=== PATIENT | female | born 1940 | race Caucasian/White ===

== ENCOUNTER 2017-11-08 12:40 | Inpatient (IN) | payer OTHER ==
[2017-11-08 13:28] LABS: PLATELET COUNT 403 10^3/uL (150-400)
--- NOTE | 2017-11-08 13:54 | EDPHY ---
H & P Stated Complaint: DELIRIUM 2 WEEKS AGO/DIZZYNESS WITH FREQ FALLS Time Seen by Provider: 11/08/17 13:23 HPI/ROS: CHIEF COMPLAINT: Dizziness, hand tingling HISTORY OF PRESENT ILLNESS: 76-year-old female with rheumatoid arthritis presents with intermittent dizziness and hand tingling. This morning, she was about to go shopping with her daughter, felt dizzy and then developed tingling in her hands and her feet. She was very weak and could not get out of the car. She did not fall and did not faint. Over the past 6 weeks, she has had intermittent episodes of dizziness, often when she is standing. She has had a few falls, but no injuries. 10 days ago, she had an episode of "delirium", described by the daughter as lying in a position, rocking and mumbling. Ativan 0.5 mg orally given and the symptoms resolved. REVIEW OF SYSTEMS: complete 10 point ROS reviewed and is negative except for the noted elements in the HPI - Personal History Current Tetanus Diphtheria and Acellular Pertussis (TDAP): Unsure - Medical/Surgical History Hx Asthma: No Hx Chronic Respiratory Disease: No Hx Diabetes: No Hx Cardiac Disease: No Hx Renal Disease: No Hx Cirrhosis: No Hx Alcoholism: No Hx HIV/AIDS: No Hx Splenectomy or Spleen Trauma: Yes Other PMH: RA EPISODES OF DELIRIUM OVER THE YEARS - Social History Smoking Status: Never smoked Drug Use: None Additional Social History: Lives with daughter in own home - Physical Exam Exam: General Appearance: Alert, anxious, eyes closed Eyes: Pupils equal and round, no conjunctival pallor or injection ENT, Mouth: Mucous membranes moist Neck: Normal inspection Respiratory: Lungs are clear to auscultation Cardiovascular: Regular rate and rhythm Gastrointestinal: Abdomen is soft and nontender Neurological: Alert, oriented x3, cranial nerves II through XII intact, motor 5 /5, sensory intact to light touch Skin: Warm and dry Extremities: Normal inspection Psychiatric: Anxious Constitutional: Initial Vital Signs Temperature (C) 36.7 C 11/08/17 12:45 Heart Rate 76 11/08/17 12:45 Respiratory Rate 18 11/08/17 12:45 Blood Pressure 115/78 11/08/17 12:45 O2 Sat (%) 97 11/08/17 12:45 O2 Delivery Mode Room Air Allergies/Adverse Reactions: ceftriaxone Allergy (Mild, Verified 11/08/17 12:43) Rash hydrocodone [Hydrocodone] Allergy (Unknown, Verified 11/08/17 12:43) gluten Allergy (Verified 11/08/17 19:36) latex Allergy (Verified 11/08/17 12:43) Sulfa (Sulfonamide Antibiotics) Allergy (Verified 11/08/17 12:43) Unknown medical chemical sensitivity Allergy (Intermediate, Uncoded 10/20/13 09:25) Other-Enter Comments Home Medications: Medication Instructions Recorded Gabapentin [Neurontin 100 MG (*)] 100 mg PO DAILY 11/08/17 Herbals/Supplements -Info Only 1 ea PO DAILY 11/08/17 traMADol [Ultram 50 mg (*)] 100 mg PO 0600,1200,1800,2100 11/08/17 Medical Decision Making - Diagnostics EKG Interpretation: EKG interpreted by me reveals normal sinus rhythm, rate 73, abnormal R-wave progression. Interpretation: Borderline EKG ED Course/Re-evaluation: This patient presents with dizziness and bilateral hand tingling. On my initial evaluation, she is clearly anxious and hyperventilating. Gradually during my evaluation, she calmed down and her fingers stopped tingling. She opened her eyes and was conversing normally after calming down. I observed a video of this pt (taken by the daughter) during the episode of delirium 10 days ago. Episode is most c/w anxiety. Daughter requests an MRI of the brain. Previously she had an MRI for one of these episodes and results were normal. Patient ambulated to the bathroom, initially felt fine, but then became dizzy and almost fell. Orthostatics are normal. After this episode of dizziness, she became quite anxious. Ativan 0.5 mg IV given. Hospitalist service was consulted for admission because of dizziness and inability to walk safely. Unclear etiology of dizziness. Laboratory results discussed with patient and her daughter. Urinalysis consistent with urinary tract infection. Urine culture sent and Cipro 500 mg orally ordered. Differential Diagnosis: Altered mental status including but not limited to hypoglycemia, infectious process, electrolyte abnormality, head injury, CVA, and intoxicants. - Data Points Laboratory Results: Laboratory Results 11/08/17 13:05 11/08/17 13:05 11/08/17 11/08/17 11/08/17 14:10 13:05 13:05 WBC 9.11 10^3/uL 10^3/uL (3.80-9.50) RBC 4.85 10^6/uL 10^6/uL (4.18-5.33) Hgb 14.9 g/dL g/dL (12.6-16.3) Hct 42.8 % % (38.0-47.0) MCV 88.2 fL fL (81.5-99.8) MCH 30.7 pg pg (27.9-34.1) MCHC 34.8 g/dL g/dL (32.4-36.7) RDW 14.1 % % (11.5-15.2) Plt Count 403 10^3/uL H 10^3/uL (150-400) MPV 9.4 fL fL (8.7-11.7) Neut % (Auto) 55.4 % % (39.3-74.2) Lymph % (Auto) 34.1 % % (15.0-45.0) [place] % (Auto) 8.9 % % (4.5-13.0) Eos % (Auto) 1.1 % % (0.6-7.6) Baso % (Auto) 0.3 % % (0.3-1.7) Nucleat RBC Rel Count 0.0 % % (0.0-0.2) Absolute Neuts (auto) 5.04 10^3/uL 10^3/uL (1.70-6.50) Absolute Lymphs (auto) 3.11 10^3/uL H 10^3/uL (1.00-3.00) Absolute Monos (auto) 0.81 10^3/uL H 10^3/uL (0.30-0.80) Absolute Eos (auto) 0.10 10^3/uL 10^3/uL (0.03-0.40) Absolute Basos (auto) 0.03 10^3/uL 10^3/uL (0.02-0.10) Absolute Nucleated RBC 0.00 10^3/uL 10^3/uL (0-0.01) Immature Gran % 0.2 % % (0.0-1.1) Immature Gran # 0.02 10^3/uL 10^3/uL (0.00-0.10) Sodium 140 mEq/L mEq/L (135-145) Potassium 3.6 mEq/L mEq/L (3.3-5.0) Chloride 110 mEq/L mEq/L (97-110) Carbon Dioxide 21 mEq/l L mEq/l (22-31) Anion Gap 9 mEq/L mEq/L (8-16) BUN 15 mg/dL mg/dL (7-23) Creatinine 0.7 mg/dL mg/dL (0.6-1.0) Estimated GFR > 60 Glucose 81 mg/dL mg/dL (70-100) Calcium 9.6 mg/dL mg/dL (8.5-10.4) Urine Color JAZMÍN Urine Appearance MODERATELY TURBID Urine pH 5.0 (5.0-7.5) Ur Specific [employer] 1.027 (1.002-1.030) Urine Protein NEGATIVE (NEGATIVE) Urine Ketones 1+ H (NEGATIVE) Urine Blood NEGATIVE (NEGATIVE) Urine Nitrate NEGATIVE (NEGATIVE) Urine Bilirubin NEGATIVE (NEGATIVE) Urine Urobilinogen 2.0 EU H EU (0.2-1.0) Ur Leukocyte Esterase 2+ H (NEGATIVE) Urine RBC TNP Urine WBC TNP Ur Epithelial Cells TNP Ur Renal Epithelial Cell TNP Urine Bacteria TNP Urine Mucus TNP Urine Yeast TNP Urine Glucose NEGATIVE (NEGATIVE) Medications Given: Acetaminophen (Tylenol) 1,000 mg PO Q8H [facility] Stop: 05/07/18 15:44 Last Admin: 11/08/17 18:28 Dose: Not Given Lorazepam (Ativan Injection) 0.5 mg IVP Q8H PRN PRN Reason: Anxiety, Unable to Take PO Stop: 05/07/18 15:48 Last Admin: 11/08/17 21:21 Dose: 0.5 mg Ondansetron HCl (Zofran) 4 mg IVP Q4HRS PRN PRN Reason: Nausea/Vomiting, Can't Take PO Stop: 05/07/18 15:34 Last Admin: 11/08/17 21:20 Dose: 4 mg Discontinued Medications Ciprofloxacin (Cipro) 500 mg PO EDNOW ONE PRN Reason: Protocol Stop: 11/08/17 15:46 Last Admin: 11/08/17 16:44 Dose: 500 mg Ceftriaxone Sodium/Dextrose (Rocephin 1 Gm (Premix)) 50 mls @ 100 mls/hr IV DAILY MIHAI PRN Reason: Protocol Stop: 12/08/17 15:59 Last Admin: 11/08/17 17:54 Dose: Not Given Lorazepam (Ativan Injection) 0.5 mg IVP EDNOW ONE Stop: 11/08/17 14:53 Last Admin: 11/08/17 15:15 Dose: 0.5 mg Lorazepam (Ativan Injection) 0.5 mg IVP EDNOW ONE Stop: 11/08/17 16:20 Last Admin: 11/08/17 16:34 Dose: 0.5 mg Point of Care Test Results: Urine Dip Collection Date 11/08/17 Collection Time 14:26 Specific [employer] (1.002-1.030) 1.030 PH (5.0-7.5) 6.0 Leukocytes (Negative) 2+ Nitrites (Negative) Negative Protein (Negative) 2+ Glucose (Negative) Negative Ketones (Negative) 3+ Urobilnogen (0.2-1.0 EU) 0.2 Bilirubin (Negative) Negative Blood (Negative) Negative Departure - Departure Disposition: [facility] Acute Clinical Impression: Dizziness Condition: Fair
--- NOTE | 2017-11-08 14:12 | CPEKG ---
Test Reason : OPEN Blood Pressure : / mmHG Vent. Rate : 073 BPM Atrial Rate : 073 BPM P-R Int : 200 ms QRS Dur : 096 ms QT Int : 431 ms P-R-T Axes : 038 -20 062 degrees QTc Int : 475 ms Sinus rhythm Borderline left axis deviation Abnormal R-wave progression, early transition Confirmed by Loreta Crowder ([id number]) on 11/08/2017 2:12:18 PM Referred By: Confirmed By:Loreta Crowder
[2017-11-08] MEDS ORDERED: LORazepam 2 MG/ML INJ IVP ONE ×2 (14:52→16:19)
[2017-11-08] MEDS ORDERED: ONDANSETRON 4 MG/2 ML VIAL IVP PRN (15:35)
[2017-11-08] MEDS ORDERED: traMADol 50 MG TAB PO PRN (15:35)
[2017-11-08] MEDS ORDERED: ONDANSETRON DISINTEGRATING 4 MG TAB PO PRN (15:35)
[2017-11-08] MEDS ORDERED: CIPROFLOXACIN 500 MG TAB PO ONE (15:45)
[2017-11-08] MEDS ORDERED: LORazepam 2 MG/ML INJ IVP PRN ×2 (15:49→19:06)
[2017-11-08] MEDS ORDERED: GADOBUTROL 10 ML VIAL IVP ONE (16:01)
--- NOTE | 2017-11-08 16:33 | GHP ---
DATE OF ADMISSION: 11/08/2017 CHIEF COMPLAINT: Dizziness and inability to ambulate with history of frequent falls. HISTORY OF PRESENT ILLNESS: The patient is a 76-year-old female with history of rheumatoid arthritis who presents to the emergency department with her daughter after an episode of sudden dizziness, which is described as lightheadedness and inability to ambulate. Her daughter states she was in her usual state of health when they came down from [place] to go shopping. She was doing well, but when she got out of the car, she had sudden onset dizziness with bilateral hand tingling. She was so weak and unable to ambulate, she was brought to the emergency department. In the ED, she was hyperventilating and it was thought she was having a panic attack. She was given IV Ativan and she has calmed a bit. She is actually unable to provide history, and the history is obtained from her daughter. She states over the past several weeks, the patient has had intermittent fluctuations of delirium. She shows me several videos of the patient curled in position, moaning and rocking with nonsensical speech. She has apparently suddenly snapped out of these episodes in the past. The daughter goes on to state that she may be having some memory deficits. She wonders if her presentation may be related to pain from her rheumatoid arthritis. She is not currently followed by a communication arts lecturer. She denies any recent fevers, chills, or urinary symptoms, such as dysuria, frequency, or urgency. There have been no reports of abdominal pain, chest pain, or shortness of breath. In the emergency department, her vital signs were stable. She was not orthostatic. She received 0.5 mg of IV Ativan and is currently resting comfortably, but again is unable to provide history or answer questions. PAST MEDICAL HISTORY: Rheumatoid arthritis. She is not currently on any disease modifying agents or immunosuppressants. MEDICATIONS: Please see [facility] for completed outpatient medication list. ALLERGIES: Ceftriaxone, hydrocodone, latex, sulfa, and medical chemical sensitivity. FAMILY HISTORY: Reviewed and noncontributory. SOCIAL HISTORY: The patient lives in [place]. Her daughter has been living with her for the last year. It is noted her daughter is quite anxious about her mother's condition. The patient is a lifetime nonsmoker and denies alcohol or drug use. REVIEW OF SYSTEMS: 10-point review of systems is performed and is negative, except as per HPI. OBJECTIVE: VITAL SIGNS: Temperature is 36.7, blood pressure is 115/78, heart rate 77, respiratory rate 18 to 22, she is 96% on room air. GENERAL: Patient is awake, intermittently alert, oriented to person only. Appears very anxious. HEENT: Head is atraumatic, normocephalic. Pupils equal, round, react to light. Extraocular motions are intact. Oropharynx is clear. Mucous membranes are moist. NECK: Supple. No JVD. HEART: Regular rate without murmur. LUNGS : Clear to auscultation bilaterally. ABDOMEN: Soft, nondistended. Normoactive bowel sounds. EXTREMITIES: Without cyanosis, clubbing, or edema. NEUROLOGIC: She moves all 4 extremities. Strength is 5/5 in bilateral upper and lower extremities. There is no facial droop. She is really not following commands. LABORATORY DATA: CBC reveals a normal white count, platelet count of 403. Basic metabolic panel is normal with a slightly low serum bicarb of 21, creatinine is normal at 0.7. Urinalysis shows 2+ leukocytes, 50-182 white blood cells with 15-25 red cells. ASSESSMENT/PLAN: The patient is a 76-year-old female with history of rheumatoid arthritis who presents to the emergency department with dizziness, weakness, recent cognitive fluctuations, and falls. 1. Acute encephalopathy. Differential diagnosis, includes infectious etiology , such as urinary tract infection given her marked pyuria and recent mental status changes. Also consider onset of dementia. With recent cognitive fluctuation as described by her daughter and evidenced by video, I would even consider Lewy body dementia. For that reason, we will avoid antipsychotics and provide low doses of p.r.n. Ativan if needed for agitation as a last resort. With marked pyuria, will treat with intravenous ceftriaxone (allergy, changed to Cipro), obtain blood cultures and await culture data. In addition, stroke or transient ischemic attack is on the differential and MRI, MRA is ordered (pt unable to tolerate, this was not pressed as my suspicion for acute CVA is low). I have also requested Neurology consult for the morning. Her daughter is convinced she has a progressive neurological condition. 2. Rheumatoid arthritis. She is not currently followed by Rheumatology and is not on any immunosuppressant therapy at this time. We will continue her home tramadol for pain control with p.r.n. low-dose intravenous morphine as needed and we will also add scheduled Tylenol. Recommend outpatient Rheumatology followup. 3. Suspected urinary tract infection. As above, we will treat with Cipro and await further culture data. DISPOSITION: Patient is admitted to observation status. She may be a candidate for discharge tomorrow if her condition remains stable pending neurologic recommendation and MRI results. PT/OT evaluations requested. CODE STATUS: Patient is full code. /[id number]/MODL MTDD
[2017-11-08] MEDS: ACETAMINOPHEN 500 MG TAB PO SCH ×2 (18:28→23:30)
[2017-11-09] MEDS: CIPROFLOXACIN 500 MG TAB PO SCH ×2 (04:02→16:47)
[2017-11-09] MEDS: ACETAMINOPHEN 500 MG TAB PO SCH ×2 (04:20→08:35)
[2017-11-09] MEDS ORDERED: KETOROLAC 15 MG/1 ML SDV IVP ONE (04:57)
[2017-11-09] MEDS: GABAPENTIN 100 MG CAP PO SCH (11:05)
[2017-11-09] MEDS: NS 1,000 ML IV SCH (11:26)
--- NOTE | 2017-11-09 11:39 | HOSPPROG ---
Hospitalist Progress Note Assessment/Plan: The patient is a 76-year-old female with history of rheumatoid arthritis who presents to the emergency department with dizziness, weakness, recent cognitive fluctuations, and falls. Dr Ledezma and I evaluated the patient together and reviewed plan of care with her daughter who is at the bedside. *acute encephalopathy -etiology unclear -she is alert and oriented but has some difficulty in recalling what city she is in -will get MRI, CT of head and neck today with sedation (was unable to lie still yesterday for this) -could be some type of dementia vs TIA, has no significant focal deficits -daughter shared a video in which the patient is lying on her side in a position and moaning c/o discomfort, it was hard to hear exactly what she is saying *suspected UTI -cipro *RA -no longer on medication for this -prn tramadol *Plan: imaging today, Dr Ledezma to see again tomorrow. She will require another midnight stay for further evaluation and imaging to help decide plan of care. Subjective: Valorie has no specific complaints. Objective: Vital Signs Temp Pulse Resp BP Pulse Ox 36.7 C 72 16 122/66 H 96 11/09/17 11:19 11/09/17 11:19 11/09/17 11:19 11/09/17 11:19 11/09/17 11:19 11/08/17 11/09/17 11/10/17 05:59 05:59 05:59 Output Total 250 Balance -250 - Physical Exam Constitutional: no apparent distress, appears nourished, not in pain Eyes: PERRL Ears, Nose, Mouth, Throat: hearing normal Cardiovascular: regular rate and rhythym Respiratory: no respiratory distress Skin: warm Musculoskeletal: full muscle strength Neurologic: AAOx3, No pronator drift, No CN II-XII Intact, No facial droop Psychiatric: interacting appropriately, not anxious ICD10 Worksheet Patient Problems: Problems Problem Status Onset Dizziness Acute Altered mental status Active Acquired asplenia Acute Infliximab (Remicade) long-term use Acute Pseudogout of left elbow Acute Septic arthritis of elbow, left Acute
[2017-11-09] MEDS: traMADol 50 MG TAB PO PRN (12:16)
--- NOTE | 2017-11-09 12:47 | GCON ---
REFERRING PHYSICIAN: Eli Flores MD HISTORY: The patient is a 76-year-old woman whom I am asked to see in neurologic consultation regard ing altered mental state. Her daughter is able to provide a nice history regarding what she has witn essed with her mother over the last few years. She says that she has had several episodes (probably 3 or 4) where she has witnessed her mother in a profound state of delirium. Specifically, she did sh ow a video where her mother is lying in the position and moaning and seems to be talking about pain and discomfort but looks very uncomfortable and often is not able to communicate very effectivel y during these events. It is not a loss of consciousness and she appears to be awake during the even ts, but simply looks to be uncomfortable. Her daughter says this can go on for hours and even days s ometimes before slowly resolving within typically 24-48 hours. There have been no witnessed seizures . She does not typically have focal deficits when this occurs. Fairly recently she was experiencing dizziness. This was a lightheadedness and trouble with balance. She had been with her daughter and was at her baseline when she went shopping and then suddenly seemed dizzy and was complaining of peter d tingling and was so weak that she had trouble walking and came to the emergency department yesterda y. She was hyperventilating and thought to be potentially having a panic attack and got IV lorazepam , which partially helped. These fluctuating symptoms continue to be challenging, and that is partly why she has come in the hospital, for better understanding of what is happening, the fact that she wa s not back to her baseline. There have also been some questions about cognitive impairment and wheth er her mother might be having dementia. She has a long history of deforming rheumatoid arthritis and for some number of years was on Remicade but has not taken that for least 5 years because they were not sure it was helpful and wanted to do some alternative medicine/Tamaz[employer] medicine type approaches. However, this has also not led to signif icant overall improvement. She is not currently under the care of a training personnel supervisor. She has not wan jovon to follow that traditional approach. When I am speaking with the patient this morning, she has limited insight about her problems. She is not specifically complaining of unique problems for which she wants to ask me questions, but is ther e with her daughter and clearly does not feel particularly comfortable. She is no longer having the acute agitation and in the middle of one of her episodes, but is not fully back to her normal baselin e yet. She is not complaining of headache but she does have her normal rheumatologic pains, mainly i n the upper extremities, hands, shoulders. The attempt to obtain MRI was limited, and she moved too much to get a good study, so we are going to try that with sedation; but there was not an obvious evidence of stroke or mass lesions. Nonspecifi c white matter changes were seen, and this has been seen in the past as well in 2013. PAST MEDICAL HISTORY: Noncontributory. ALLERGIES: Ceftriaxone, hydrocodone, gluten, latex, sulfa and some medical chemical sensitivities. Her daughter says her mother is fairly sensitive to low doses of medicines as well. FAMILY HISTORY: Noncontributory. SOCIAL HISTORY: She lives in [place], and her daughter has been living with her recently. The pat wan does not have history of smoking, drug or alcohol use. REVIEW OF SYSTEMS: A 10-point review of systems completed and unremarkable except for that noted abo ve. CURRENT MEDICATION: Cipro 500 mg twice daily; gabapentin 100 mg daily; lorazepam as needed; morphine as needed; Zofran as needed; tramadol as needed for pain. At home she had gabapentin 100 mg daily; tramadol 100 mg 4 times a day; and numerable supplements. PHYSICAL EXAMINATION: VITALS: The blood pressure is 122/66. Pulse of 72. Respirations 16. Temper ature 36.7. GENERAL: A well-developed woman, lying in the bed in no acute distress. EYES: Clear. NECK: Supple. No bruits or masses. CARDIAC: Regular rate and rhythm. No murmur. SKIN: No skin rashes. NEURO: She is alert but has unsustained attention and is able to tell me that she is in [facility], but could not remember the city. She knows her address but could not come up with the ci ty initially. She knows she is in [place]. She can generally follow simple commands but is easily distracted and tends to answer questions but not initiate conversation for the most, part and often s imply closes her eyes and appears to want to rest. She does not seem to have aphasic speech. The pu pils are 2 mm and reactive. Extraocular movements are intact. Normal facial sensation and movement. Palate elevates symmetrically. Tongue protrudes midline. The motor examination, it is hard to det ect a definite weakness outside of just deconditioning, so she is in the 4/5 range approximately, and more preserved strength distally although the deforming rheumatoid arthritis creates some limitation . She recognizes sensation well to temperature and light touch. I did not have her try to walk with me. Reflexes 1+. LABORATORY STUDIES: Normal white count. Chemistry is unremarkable. Urinalysis shows evidence of a urinary tract infection with 50-182 white cells. The brain MRI again was only limited but did not show anything beyond white matter changes and atroph y. No obvious mass effect. IMPRESSION: Total unit time of 50 minutes. The patient's case was reviewed directly with Bethany spivey as well as the patient's daughter and her nurse. We are not finding an obvious acute neurologi c diagnosis beyond episodic delirium or encephalopathy, and it is reasonable to consider that there m ay be underlying mild cognitive impairment or dementia but I am less sure of that at this stage of th e evaluation. I do not think these events represent TIA or seizure. Central nervous system infectio n is thought to be unlikely and I also doubt vasculitis or complications associated with a primary rh eumatologic disorder, but I feel that better imaging of the brain with MRI as well as MR angiogram wo uld be important for ruling out secondary causes of this phenomenon. A functional disorder or a conv ersion disorder associated with other factors of her chronic illness is also not clearly evident at t his point, but part of the differential consideration. Having the urinary tract infection can certai nly create delirium in the setting of underlying limited cognitive reserve. Speech Therapy has initi ated evaluation. We will all be getting to know her better over the next few days and try to provide further insights for the patient and her daughter, who is very conscientious and interested in doing what she can to help her mother. /[id number]/MODL
--- NOTE | 2017-11-09 15:04 | ASMTCMCOM ---
CM Note CM Note Notes: Pt is a 76 y/o female admitted for dizziness and inability to ambulate. Pt has a hx of frequent falls, rheumatoid arthritis. Therapies have been ordered and awaiting recommendations. Pt has been having intermittent fluctuations of delirium. Therapies and neurology have been consulted. Needs are TBD at this time. CM to follow. Plan: TBD Date Signed: 11/09/2017 03:03 PM Electronically Signed By:BLESSING Sherman
[2017-11-09] MEDS ORDERED: GADOBUTROL 10 ML VIAL IVP ONE (15:19)
[2017-11-10] MEDS: NS 1,000 ML IV SCH (00:23)
[2017-11-10] MEDS: CIPROFLOXACIN 500 MG TAB PO SCH (04:55)
--- NOTE | 2017-11-10 07:28 | PDMN ---
Medical Necessity Medical necessity: Change to IP, as of 11/09/17, per PHYSICIAN ADVISOR; los >2 mn for ongoing management of acute encephalopathy (etiology unclear-r/o dementia vs TIA), dizziness, weakness, falls & suspected UTI; requiring further workup/monitoring , IVFs & therapies; hx RA
[2017-11-10 08:14] VITALS: BP 121/69
[2017-11-10] MEDS: GABAPENTIN 100 MG CAP PO SCH (08:58)
[2017-11-10] MEDS: traMADol 50 MG TAB PO PRN (09:02)
--- NOTE | 2017-11-10 11:24 | HOSPPROG ---
Hospitalist Progress Note Assessment/Plan: The patient is a 76-year-old female with history of rheumatoid arthritis who presents to the emergency department with dizziness, weakness, recent cognitive fluctuations, and falls. Dr Ledezma and I evaluated the patient together and reviewed plan of care with her daughter who is at the bedside. *acute encephalopathy -resolved -Imaging doesn't show any clear cut etiology -further f/u with Dr Ledezma *suspected UTI/possible cystitis -micro shows Aerococcus urinae- she says she is allergic to PCN and to cephalosporins -w improvement, will give her another day of cipro even though this is usually not treated with this *RA -no longer on medication for this -prn tramadol *Plan: dc Subjective: Tree is feeling well, eating lunch and wants to go home. Objective: Vital Signs Temp Pulse Resp BP Pulse Ox 36.8 C 70 16 121/69 H 98 11/10/17 08:00 11/10/17 08:00 11/10/17 08:00 11/10/17 08:00 11/10/17 08:00 11/09/17 11/10/17 11/11/17 05:59 05:59 05:59 Intake Total 1200 Balance 1200 - Physical Exam Constitutional: no apparent distress Eyes: PERRL Ears, Nose, Mouth, Throat: hearing normal Respiratory: no respiratory distress Gastrointestinal: normoactive bowel sounds Skin: warm Musculoskeletal: full muscle strength Neurologic: sensation intact bilaterally Psychiatric: interacting appropriately ICD10 Worksheet Patient Problems: Problems Problem Status Onset Dizziness Acute Altered mental status Active Acquired asplenia Acute Infliximab (Remicade) long-term use Acute Pseudogout of left elbow Acute Septic arthritis of elbow, left Acute
--- NOTE | 2017-11-10 11:56 | ASMTLACE ---
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
--- NOTE | 2017-11-10 11:58 | ASMTCMCOM ---
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 CM sent referral to [facility] who can accept pt. Pt to return home with dtr Lore who lives with her. DC Plan: Homecare/ [facility] Date Signed: 11/10/2017 11:58 AM Electronically Signed By:Tameka Cantor RN
--- NOTE | 2017-11-10 12:01 | ASMTDCNOTE ---
Case Management Discharge Discharge Order Complete? 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 Sydni at [facility] notified. Date Signed: 11/10/2017 12:00 PM Electronically Signed By:Tameka Cantor RN
--- NOTE | 2017-11-10 13:38 | GDS ---
DISCHARGE DIAGNOSES: 1. Acute encephalopathy. 2. Suspected urinary tract infection, possible cystitis. 3. Rheumatoid arthritis. CONSULTATION: Dr. Blayne Ledezma. HISTORY: Briefly, Vaolrie Powell is a 77-year-old female with a history of rheumatoid arthritis. She presented to the emergency department with her daughter after an episode of dizziness, which was described as lightheadedness and the inability to ambulate. Her daughter said she was in her usual s [facility] when they came down to [place] to go shopping. She was doing well, but when she got out of the car, she had a sudden onset dizziness and bilateral hand tingling. In the ER she was hyp erventilating and thought she was having a panic attack. She was getting IV Ativan and improved. Th e daughter gave much of the history. She was seen and evaluated by Dr. Blayen Ledezma. She had mult iple imaging studies done, which showed nothing acute. During my evaluation along with Dr. Ledezma the daughter showed us a video she recorded. It does not show that she has a loss of consciousness, but appears to be awake during these events where she looks uncomfortable and she will stare off and shake. She will further follow up with Dr. Ledezma in the outpatient setting. In addition, there was concern of urinary tract infection, which she was treated with Cipro. Her urine culture grew ou t Aerococcus urinae. Typically Cipro does not treat this, but with significant improvement of her sy mptoms, we will continue Cipro for 1 more day. HOSPITAL COURSE: 1. Acute encephalopathy, unclear of the exact etiology. She will further follow up with Dr. Dias as next week. 2. Suspected UTI, possible cystitis. With such significant improvement with Cipro, we will continue this for another day. If she gets symptoms again, to follow up with her doctor. 3. Rheumatoid arthritis. She is no longer on treatment. She takes p.r.n. tramadol. DISCHARGE CONDITION: Stable. Blood pressure is 121/69, respiratory rate is 16, pulse is 70, tempera ture is 36.8 Celsius, O2 sats on room air 98%. MEDICATIONS AT DISCHARGE: Please see the EMR. DISCHARGE INSTRUCTIONS: 1. To follow up with Dr. Ledezma next week. 2. If she develops any stroke-like symptoms, return to the ER. 3. To take Cipro as instructed and to note that it can affect her tendons. Greater than 30 minutes reviewing the patient's care with the patient and her 2 daughters. /[id number]/MODL
--- NOTE | 2017-11-10 14:57 | PDIAF ---
- Diagnosis Diagnosis: acute encephalopathy Code Status: Full Code - Medication Management Discharge Medications: Medications to Continue on Transfer Gabapentin [Neurontin 100 MG (*)] 100 mg PO DAILY 11/08/17 [Last Taken 11/08/17] Herbals/Supplements -Info Only 1 ea PO DAILY 11/08/17 [Last Taken 11/08/17 08:00 ] traMADol [Ultram 50 mg (*)] 100 mg PO 0600,1200,1800,2100 11/08/17 [Last Taken 11/08/17 12:00] Ciprofloxacin [Cipro] 500 mg PO BID@0400,1600 #2 tab 11/10/17 [Last Taken Unknown] Discharge Medications: Refer to the Discharge Home Medication list for PRN reason. - Orders Services needed: Home Care, Physical Therapy, Speech Language Pathologist Home Care Face to Face: I certify that this patient was under my care and that I had the required [id number] encounter meeting the encounter requirements on the discharge day. My findings support the fact that the patient is homebound as defined in Home Care Face to Face Continued: CMS Chapter 7 Medicare Benefits Manual 30.1.1 , The condition of the patient is such that there exists a normal inability to leave home and consequently, leaving home would require a considerable and taxing effort. Diet Recommendation: no restrictions on diet Diet Texture: Regular Texture Diet Additional Instructions: Return for worsening symptoms or any concerns. follow up with Dr Ledezma take the cipro for 2 more doses, one this evening and one tomorrow morning; this medication can affect the tendons, kala achilles tendon; take it easy while on this antibiotic if you develop fever, chills, chest pain, shortness of breath; return to the ER - Follow Up Care Current Providers and Referrals: Les Enriquez MD [Primary Care Provider] - As per Instructions (Call to make an appointment. ) Blayne Ledezma MD [Medical Doctor] -
--- NOTE | 2017-11-10 17:14 | ASDISCHSUM ---
Discharge Information Plan Status:Home with Home Health Medically Cleared to Leave: Discharge Date:11/10/2017 11:49 AM CM D/C Disposition:Home Health Service ADT D/C Disposition:Home, Routine, Self-Care Projected Discharge Date:11/10/2017 11:00 AM Transportation at D/C:Family Discharge Delay Reason: Follow-Up Date:11/10/2017 11:00 AM Discharge Slot: Final Diagnosis: Placement Information Referral Type:*Home Health Care Services Referral ID:[id number] Provider Name:[facility] Address 1:[address] Phone Number: Address 2:[facility] [address] Fax Number: City:[place] Selection Factors: State:[place] Patient Contact Information Contact Name:HARRY Relationship:Daughter Address:[address] City:[place] [facility] Phone: State/Zip Code:[place] [address] Email: Financial Information Financial Class:Medicare Primary Plan Desc:MEDICARE INPATIENT Primary Plan Number:[id number] Secondary Plan Desc:HERNANDEZ RULE Secondary Plan Number:[id number] Assessment Information LACE LACE Length of stay for Answers: 2 days current admission 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 Pt has a hx of frequent falls, rheumatoid arthritis. Therapies have been ordered and awaiting recommendations. Pt has been having intermittent fluctuations of delirium. Therapies and neurology have been consulted. Needs are TBD at this time. CM to follow. 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 CM sent referral to [facility] who can accept pt. Pt to return home with dtr Lore who lives with her. DC Plan: Homecare/ [facility] Date Signed: 11/10/2017 11:58 AM Electronically Signed By:Tameka Cantor RN Case Management Discharge Plan Note Case Management Discharge Discharge Order Complete? 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 Sydni at [facility] notified. Date Signed: 11/10/2017 12:00 PM Electronically Signed By:Tameka Cantor RN Intervention Information Intervention Type:*SIMON-Signed Date of Service:11/09/2017 02:48 PM Patient Type:Observation Staff Member:Concetta Douglas Hours: Discipline: Severity: Comment: Intervention Type:*W[place] 73 Date of Service:11/08/2017 05:20 PM Patient Type:Inpatient Staff Member:DAVID Hess Courtney Hours: Discipline: Severity: Comment:
== END 2017-11-10 11:49 | disposition home health service (06) | DRG 689 ==
LOC: F3E 17:07 → OBSVTOIN 11-09 15:23
PROVIDERS: ADMIT Hospitalist; ATTEND Hospitalist
DX: N30.90 Cystitis, unspecified without hematuria (principal); G93.49 Other encephalopathy; M06.9 Rheumatoid arthritis, unspecified
CPT/HCPCS: 92523-GN; A9585; G0378; G9165-GN-CJ; G9166-GN-CI; J1885; J2060; J2405

== ENCOUNTER 2018-05-29 15:00 | Emergency (ER) | payer OTHER ==
[2018-05-29] MEDS ORDERED: ONDANSETRON 4 MG/2 ML VIAL ONE (15:23)
[2018-05-29 15:31] LABS: PLATELET COUNT 349 10^3/uL (150-400)
[2018-05-29] MEDS ORDERED: fentaNYL 100 MCG/2 ML INJ IVP ONE (15:32)
[2018-05-29] MEDS ORDERED: NS 1,000 ML IV ONE (15:32)
--- NOTE | 2018-05-29 15:37 | EDPHY ---
H & P Time Seen by Provider: 05/29/18 15:23 HPI/ROS: CHIEF COMPLAINT: Abdominal pain HISTORY OF PRESENT ILLNESS: Patient is a 77-year-old female who presents emergency department abdominal pain. Pain started last evening. She states that is fairly central and radiates to her back. She has had nausea with nonbloody emesis. No diarrhea. No fevers or chills. Patient has no dysuria or frequency. Patient had a pre and appointment with her doctor today, Dr. Enriquez. After his evaluation he sent her to the emergency department for further evaluation. REVIEW OF SYSTEMS: 10 systems were reveiwed and are negative with the exception of the elements mentioned in the history of present illness. Past Medical/Surgical History: Includes encephalopathy, urinary tract infection, rheumatoid arthritis Past surgical history: Social history: Patient lives in [place]. She does not smoke. She does not use alcohol or drugs. Smoking Status: Never smoked Physical Exam: Vitals noted. Afebrile. GENERAL: Well-appearing, in no acute distress, alert. HEENT: Eyes normal to inspection, normal pharynx, no signs of dehydration. NECK: Normal, supple. RESPIRATORY: Clear to auscultation bilaterally, no rales, rhonchi or wheezing. CVS: Regular rate and rhythm, no rubs, murmurs, or gallops. ABDOMEN: Soft, right upper quadrant tenderness to palpation with no rebound or guarding. Patient has no mid abdominal tenderness to palpation. There is no palpable mass. Nondistended, no organomegaly. BACK: Normal to inspection, no CVA tenderness. SKIN: Normal color, no rash, warm, dry. No pallor. EXTREMITIES: No pedal edema, no calf tenderness, no joint swelling. NEURO/PSYCH: Alert and oriented, normal mood and affect, normal motor sensory exam. Constitutional: Initial Vital Signs Temperature (C) 36 C 05/29/18 15:03 Heart Rate 74 05/29/18 15:03 Respiratory Rate 16 05/29/18 15:03 Blood Pressure 140/78 H 05/29/18 15:03 O2 Sat (%) 98 05/29/18 15:03 O2 Delivery Mode Room Air Allergies/Adverse Reactions: ceftriaxone Allergy (Mild, Verified 11/08/17 12:43) Rash hydrocodone [Hydrocodone] Allergy (Unknown, Verified 11/08/17 12:43) gluten Allergy (Verified 11/08/17 19:36) latex Allergy (Verified 11/08/17 12:43) Sulfa (Sulfonamide Antibiotics) Allergy (Verified 11/08/17 12:43) Unknown medical chemical sensitivity Allergy (Intermediate, Uncoded 10/20/13 09:25) Other-Enter Comments Home Medications: Medication Instructions Recorded Gabapentin [Neurontin 100 MG (*)] 100 mg PO DAILY 11/08/17 Herbals/Supplements -Info Only 1 ea PO DAILY 11/08/17 traMADol [Ultram 50 mg (*)] 100 mg PO 0600,1200,1800,2100 11/08/17 Percocet 5-325 mg Tablet 05/29/18 Medical Decision Making - Diagnostics Imaging Results: Imaging Impressions Abdomen Ultrasound 05/29/18 15:33 Impression: 1. No cholelithiasis or biliary ductal dilation. 2. Nonobstructive right nephrolithiasis. No hydronephrosis. 3. Pancreas obscured by bowel gas. 4. No hepatomegaly. 5. No aortic aneurysm although aortoiliac bifurcation not well visualized. Findings and recommendations discussed with Emergency Department physician, YOLANDA WANG at 16:25 hour, 05/29/2018. Final report concurs with initial preliminary interpretation. Abdomen CT 05/29/18 16:32 Impression: 1. No abdominopelvic inflammatory mass or ascites. Yolanda White was notified of these findings by telephone at 5:25 PM on 2018. ED Course/Re-evaluation: In the emergency department I discussed possible etiologies with the patient and daughter. I answered all her questions. IV was placed. Patient refused anti nausea medicine as well as pain medication. Laboratory studies, EKG, ultrasound of the right upper quadrant and aorta were ordered. Patient's white count was mildly elevated at 10. Troponin is negative. EKG shows normal sinus rhythm, normal rate, normal axis, normal intervals. There are no ST or T-wave abnormalities. EKG is normal as interpreted by me. Patient's sodium is slightly low 134. Patient's LFTs are notable for an elevated total bilirubin 1.6. Unconjugated bilirubin is 1.2. AST and ALT are unremarkable. Lipase is normal. Ultrasound right upper quadrant: Please refer the dictated report. No acute disease noted. No noted abdominal aortic aneurysm. Please refer the dictated report by Dr. Muñiz. I rechecked the patient. She states she was feeling much better. She had a benign abdominal exam. However, the patient initially complained of mid abdominal pain radiating to her back. I was concerned for possible dissection. The patient consented to CT imaging. CT with IV contrast of the abdomen pelvis: Please refer the dictated report. No acute disease noted. I rechecked the patient. She was doing well. She had no abdominal pain. No nausea vomiting in the emergency department. On exam her abdomen was soft, nontender nondistended. I gave the patient warnings prior to leaving. She will return with worsening symptoms. She will follow up with primary care physician for the elevated LFT. Differential Diagnosis: My differential includes but is not limited to cholecystitis, cholangitis, pancreatitis, small-bowel obstruction, perforation, aortic aneurysm, aortic dissection, ACS, acute [place], pulmonary embolus, pneumonia, hiatal hernia - Data Points Laboratory Results: Laboratory Results 05/29/18 15:20 05/29/18 15:20 05/29/18 05/29/18 05/29/18 15:24 15:20 15:20 WBC 10.43 10^3/uL H 10^3/uL (3.80-9.50) RBC 4.84 10^6/uL 10^6/uL (4.18-5.33) Hgb 15.0 g/dL g/dL (12.6-16.3) Hct 43.7 % % (38.0-47.0) MCV 90.3 fL fL (81.5-99.8) MCH 31.0 pg pg (27.9-34.1) MCHC 34.3 g/dL g/dL (32.4-36.7) RDW 14.1 % % (11.5-15.2) Plt Count 349 10^3/uL 10^3/uL (150-400) MPV 9.8 fL fL (8.7-11.7) Neut % (Auto) 64.3 % % (39.3-74.2) Lymph % (Auto) 25.5 % % (15.0-45.0) [place] % (Auto) 8.1 % % (4.5-13.0) Eos % (Auto) 1.2 % % (0.6-7.6) Baso % (Auto) 0.6 % % (0.3-1.7) Nucleat RBC Rel Count 0.0 % % (0.0-0.2) Absolute Neuts (auto) 6.71 10^3/uL H 10^3/uL (1.70-6.50) Absolute Lymphs (auto) 2.66 10^3/uL 10^3/uL (1.00-3.00) Absolute Monos (auto) 0.84 10^3/uL H 10^3/uL (0.30-0.80) Absolute Eos (auto) 0.13 10^3/uL 10^3/uL (0.03-0.40) Absolute Basos (auto) 0.06 10^3/uL 10^3/uL (0.02-0.10) Absolute Nucleated RBC 0.00 10^3/uL 10^3/uL (0-0.01) Immature Gran % 0.3 % % (0.0-1.1) Immature Gran # 0.03 10^3/uL 10^3/uL (0.00-0.10) Sodium 134 mEq/L L mEq/L (135-145) Potassium 3.8 mEq/L mEq/L (3.5-5.2) Chloride 103 mEq/L mEq/L (97-110) Carbon Dioxide 24 mEq/l mEq/l (22-31) Anion Gap 7 mEq/L mEq/L (6-14) BUN 17 mg/dL mg/dL (7-23) Creatinine 0.7 mg/dL mg/dL (0.6-1.0) Estimated GFR > 60 Glucose 104 mg/dL H mg/dL (70-100) Calcium 9.6 mg/dL mg/dL (8.5-10.4) Total Bilirubin 1.6 mg/dL H mg/dL (0.1-1.4) Conjugated Bilirubin 0.4 mg/dL mg/dL (0.0-0.5) Unconjugated Bilirubin 1.2 mg/dL H mg/dL (0.0-1.1) AST 24 IU/L IU/L (14-46) ALT 20 IU/L IU/L (9-52) Alkaline Phosphatase 113 IU/L IU/L (38-126) POC Troponin I 0.00 ng/mL ng/mL (0.00-0.08) Total Protein 7.6 g/dL g/dL (6.3-8.2) Albumin 4.2 g/dL g/dL (3.5-5.0) Lipase 64 IU/L IU/L (23-300) Medications Given: Discontinued Medications Fentanyl (Sublimaze) 25 mcg IVP EDNOW ONE Stop: 05/29/18 15:33 Last Admin: 05/29/18 15:42 Dose: Not Given Sodium Chloride (Ns) 1,000 mls @ 0 mls/hr IV EDNOW ONE; Wide Open PRN Reason: Protocol Stop: 05/29/18 15:33 Last Admin: 05/29/18 15:41 Dose: 1,000 mls Point of Care Test Results: Chemistry 05/29/18 15:24 POC Troponin I 0.00 ng/mL ng/mL (0.00-0.08) Departure - Departure Disposition: Home, Routine, Self-Care Clinical Impression: Abdominal pain Qualifiers: Abdominal location: right upper quadrant Qualified Code(s): R10.11 - Right upper quadrant pain Condition: Good Instructions: Acute Abdominal Pain (ED) Additional Instructions: Return with increasing abdominal pain, vomiting, fever or any other concerns. You need close follow-up with her primary care physician to evaluate free a slightly elevated total bilirubin. Your ultrasound and CT scans were normal. Referrals: Les Enriquez MD [Primary Care Provider] - 1-2 days without fail
[2018-05-29] MEDS ORDERED: IOPAMIDOL (ISOVUE-300) 100 ML BTL ONE (16:41)
[2018-05-29 17:54] VITALS: BP 128/78
--- NOTE | 2018-05-29 23:12 | CPEKG ---
Test Reason : OPEN Blood Pressure : / mmHG Vent. Rate : 073 BPM Atrial Rate : 073 BPM P-R Int : 199 ms QRS Dur : 087 ms QT Int : 419 ms P-R-T Axes : 075 -09 052 degrees QTc Int : 462 ms Sinus rhythm Abnormal R-wave progression, early transition Confirmed by Yolanda Sykes ([id number]) on 05/29/2018 11:12:25 PM Referred By: YLOANDA SYKES Confirmed By:Yolanda Sykes
== END 2018-05-29 17:54 | disposition home or self-care (01) ==
DX: R10.11 Right upper quadrant pain (principal); R11.2 Nausea with vomiting, unspecified; E86.9 Volume depletion, unspecified
CPT/HCPCS: 74177; 76705; 93005; 96361; 96374; 99285; J3010; Q9967; 84484-ER; J2405